=== PATIENT | female | born 1945 | race Caucasian/White ===

== ENCOUNTER 2018-11-10 08:11 | Inpatient (IN) | payer OTHER ==
[2018-11-10] VITALS (29 sets, daily range): BP systolic 96–122; BP diastolic 53–88; PULSE 75–120; RESP 15–25; Ht 149.9 cm; Wt 44.4 kg
[~2018-11-10] VITALS: Ht 149.9 cm; Wt 44.4 kg
[2018-11-10] MEDS ORDERED: ONDANSETRON 4 MG INJ IV STA (08:21)
[2018-11-10] MEDS ORDERED: IODIXANOL LOCM 100 ML BTL ONE ×2 (08:24→08:36)
[2018-11-10] MEDS ORDERED: SOD CHLORIDE 0.9% 100 ML ONE ×2 (08:24→08:36)
[2018-11-10] MEDS ORDERED: ASPIRIN 325 MG TAB PO ONE (08:30)
[2018-11-10] MEDS ORDERED: CEFTRIAXONE 1 GM/50 ML (PMX) 50 ML IVPB STA (08:53)
[2018-11-10] MEDS ORDERED: POLY238P32 ORAL (08:56)
[2018-11-10] MEDS ORDERED: INSU100I33 SC (08:56)
[2018-11-10] MEDS ORDERED: CARV3.1260 ORAL (08:56)
[2018-11-10] MEDS ORDERED: ASPI-831 ORAL (08:56)
[2018-11-10] MEDS ORDERED: LEVO125T7 ORAL (08:56)
[2018-11-10] MEDS ORDERED: ATOR-2 ORAL (08:56)
[2018-11-10] MEDS ORDERED: METF100010 ORAL (08:56)
[2018-11-10] MEDS ORDERED: CLOP75TA28 ORAL (08:56)
[2018-11-10] MEDS ORDERED: ASPIRIN 300 MG SUPP PR ONE (09:00)
[2018-11-10] MEDS ORDERED: ACETAMINOPHEN 650 MG SUPP PR ONE (09:30)
[2018-11-10] MEDS ORDERED: SODIUM CHLORIDE 0.9% 1L BAG IV* STA (09:50)
[2018-11-10] MEDS ORDERED: SENN-120 PO (10:01)
[2018-11-10] MEDS ORDERED: ACETAMINOPHEN 325 MG TAB PO PRN ×2 (11:00→12:30)
[2018-11-10] MEDS ORDERED: ONDANSETRON 4 MG INJ IV PRN ×2 (11:00→12:30)
[2018-11-10] MEDS ORDERED: NORepinephrine 8MG/250 ML (PMX 250 ML IV STA ×2 (12:24→12:46)
[2018-11-10] MEDS ORDERED: DOCUSATE SODIUM 100 MG CAP PO PRN (12:30)
[2018-11-10] MEDS ORDERED: MAGNESIUM HYDROXIDE 30ML CUP PO PRN (12:30)
[2018-11-10] MEDS ORDERED: hydrALAzine 20 MG INJ IV PRN (12:30)
[2018-11-10] MEDS ORDERED: NITROGLYCERIN (SL) 0.4 MG TAB SL PRN (12:30)
[2018-11-10] MEDS ORDERED: morphine 2 MG INJ IV PRN (12:30)
[2018-11-10] MEDS ORDERED: SENNA TAB PO PRN (12:30)
[2018-11-10] MEDS ORDERED: HYDROCODONE/APAP (5/325) TAB PO PRN (12:30)
[2018-11-10] MEDS ORDERED: ALBUTEROL/IPRATROPIUM (NEB) 3 ML AMP HHN PRN (12:30)
[2018-11-10] MEDS ORDERED: LORAZEPAM 2 MG INJ IV PRN (12:30)
[2018-11-10] MEDS ORDERED: NACL 0.9% 3 ML SYG IV SCH (12:30)
--- NOTE | 2018-11-10 13:18 | ERD ---
ER Documentation Chief Complaint Chief Complaint ALOC WITH LKWT 2300 LAST NIGHT. FEBRILE AND TACHYCARDIC HPI Patient is a 73-year-old female with stroke, hypertension, and diabetes who presents with altered mental status. Please note the history and physical exam is limited secondary to the patient's altered mental status. The patient was brought in by ambulance. She was altered and is normally awake alert and oriented. The patient had a last known well time of 11 PM. She was "lethargic" per paramedics. Her sugar was 353. ROS All systems reviewed and are negative except as per history of present illness. Medications Home Meds Reported Medications Sennosides* (Senna Lax*) 8.6 Mg Tablet, 1 TAB PO Q12H PRN for CONSTIPATION, TAB 11/10/18 Polyethylene Glycol 3350 ([id number]) 238 Gm Powder, 17 GM ORAL DAILY 11/10/18 Insulin Glargine,Hum.rec.anlog (Basaglar Kwikpen U-100) 100 Unit/1 Ml Insuln.pen, 20 UNITS SC HS 11/10/18 Levothyroxine Sodium* (Levothyroxine Sodium*) 125 Mcg Tablet, 1 TAB ORAL DAILY 11/10/18 Atorvastatin* (Atorvastatin*) 80 Mg Tablet, 1 TAB ORAL HS 11/10/18 Clopidogrel Bisulfate (Clopidogrel) 75 Mg Tablet, 1 TAB ORAL DAILY 11/10/18 Aspirin (Aspirin) 81 Mg Chew, 1 TAB ORAL DAILY 11/10/18 Metformin Hcl* (Metformin Hcl*) 1,000 Mg Tablet, 500 MG ORAL BID 11/10/18 Carvedilol* (Carvedilol*) 3.125 Mg Tablet, 1 TAB ORAL DAILY 11/10/18 Allergies Allergies: Coded Allergies: No Known Allergy (Unverified , 11/10/18) PMhx/Soc History of Surgery: Yes (JOVON, RT HIP, CHOLECYSTECTOMY) Anesthesia Reaction: No Hx Neurological Disorder: Yes (CVA) Hx Respiratory Disorders: No Hx Cardiac Disorders: Yes (HTN) Hx Psychiatric Problems: No Hx Miscellaneous Medical Probl: Yes (DM, HYPOTHYROIDISM) Hx Alcohol Use: No Hx Substance Use: No Hx Tobacco Use: No Smoking Status: Never smoker FmHx Unable to obtain Physical Exam Vitals Vital Signs Date Temp Pulse Resp B/P (MAP) Pulse Ox O2 O2 Flow FiO2 Time Delivery Rate 11/10/18 100.4 100 19 82/45 (57) 100 Nasal 11:50 Cannula 11/10/18 103.1 10:34 11/10/18 101.0 109 20 94/53 (67) 99 Nasal 2.0 10:30 Cannula 11/10/18 102.8 108 18 114/65 97 Nasal 09:30 (81) Cannula 11/10/18 103.1 127 16 127/70 90 08:54 (89) 11/10/18 Nasal 2 08:30 Cannula Physical Exam Const: Altered, nonverbal at this time Head: Atraumatic Eyes: Normal Conjunctiva ENT: Normal External Ears, Nose and Mouth. Neck: Full range of motion. No meningismus. Resp: Clear to auscultation bilaterally Cardio: Regular rate and rhythm, no murmurs Abd: Soft, non tender, non distended. Normal bowel sounds Skin: No petechiae or rashes Back: No midline or flank tenderness Ext: No cyanosis, or edema Neur: Awake but nonverbal, right-sided gaze preference, not following commands to squeeze fingers Result Diagram: 11/10/18 0848 11/10/18 0848 Results 24 hrs Laboratory Tests Test 11/10/18 08:46 11/10/18 08:48 11/10/18 09:04 11/10/18 11:11 Prothrombin Time 13.5 Sec Prothrombin Time 1.1 Ratio INR International 1.02 Normalized Ratio Activated 30.5 Sec Partial Thrombopl ast Time Hemoglobin A1c 8.7 % White Blood Count 3.7 10^3/ul Red Blood Count 4.25 10^6/ul Hemoglobin 12.0 g/dl Hematocrit 35.7 % Mean Corpuscular 84.0 fl Volume Mean Corpuscular 28.2 pg Hemoglobin Mean Corpuscular 33.6 g/dl Hemoglobin Concen t Red Cell 15.7 % Distribution Width Platelet Count 214 10^3/UL Mean Platelet 9.9 fl Volume Immature 1.100 % Granulocytes % Neutrophils % 93.5 % Lymphocytes % 3.8 % Monocytes % 1.3 % Eosinophils % 0.0 % Basophils % 0.3 % Nucleated Red 0.0 /100WBC Blood Cells % Immature 0.040 10^3/ul Granulocytes # Neutrophils # 3.5 10^3/ul Lymphocytes # 0.1 10^3/ul Monocytes # 0.1 10^3/ul Eosinophils # 0.0 10^3/ul Basophils # 0.0 10^3/ul Nucleated Red 0.0 10^3/ul Blood Cells # Sodium Level 132 mmol/L Potassium Level 3.3 mmol/L Chloride Level 90 mmol/L Carbon Dioxide 27 mmol/L Level Anion Gap 15 Blood Urea 10 mg/dl Nitrogen Creatinine 0.77 mg/dl Est Glomerular mL/min Filtrat Rate mL/min Glucose Level 399 mg/dl Calcium Level 9.0 mg/dl Creatine Kinase < 20 IU/L Creatine Kinase Index Creatinine Kinase < 0.22 ng/ml MB (Mass) Troponin I 0.059 ng/ml Triglycerides 141 mg/dl Level Cholesterol Level 154 mg/dl LDL Cholesterol, 73 mg/dl Calculated HDL Cholesterol 53 mg/dl Cholesterol/HDL 2.9 RATIO Ratio Ethyl Alcohol < 10.0 mg/dl Level POC Venous 2.7 mmol/L Lactate Urine Color YELLOW Urine Clarity SLIGHTLY CLOUDY Urine pH 6.0 Urine Specific 1.052 Coffey Urine Ketones 1+ mg/dL Urine Nitrite NEGATIVE mg/dL Urine Bilirubin NEGATIVE mg/dL Urine NEGATIVE mg/dL Urobilinogen Urine Leukocyte 2+ Nikolas/ul Esterase Urine Microscopic > 182 /HPF RBC Urine Microscopic 57 /HPF WBC Urine Bacteria FEW /HPF Urine Hemoglobin 3+ mg/dL Urine Glucose 3+ mg/dL Urine Total 1+ mg/dl Protein Urine Opiates Negative Screen Urine Negative Barbiturates Urine Negative Amphetamines Screen Urine Negative Benzodiazepines Screen Urine Cocaine Negative Screen Urine Negative Cannabinoids Test 11/10/18 11:20 POC Venous 1.7 mmol/L Lactate Current Medications Medications Dose Sig/Lanie Start Time Status Last (Trade) Ordered Route PRN Stop Time Admin Dose Reason Admin Ondansetron 4 mg ONCE STAT 11/10/18 DC 11/10/18 HCl (Zofran IV 08:21 08:21 Inj) 11/10/18 08:22 IV Flush 10 ml STK-MED 11/10/18 DC 11/10/18 (NS 10 ml) ONCE .ROUTE 08:24 08:53 11/10/18 08:25 Sodium 100 ml @ ud STK-MED 11/10/18 DC 11/10/18 Chloride ONCE .ROUTE 08:24 08:53 11/10/18 08:25 Iodixanol 100 ml STK-MED 11/10/18 DC 11/10/18 (Visipaque ONCE .ROUTE 08:24 08:53 Locm) 11/10/18 08:25 Aspirin 325 mg ONCE ONCE 11/10/18 DC (Aspirin) PO 08:30 11/10/18 08:53 IV Flush 10 ml STK-MED 11/10/18 DC 11/10/18 (NS 10 ml) ONCE .ROUTE 08:36 08:53 11/10/18 08:37 Sodium 100 ml @ ud STK-MED 11/10/18 DC 11/10/18 Chloride ONCE .ROUTE 08:36 08:53 11/10/18 08:37 Iodixanol 100 ml STK-MED 11/10/18 DC 11/10/18 (Visipaque ONCE .ROUTE 08:36 08:53 Locm) 11/10/18 08:37 Aspirin 300 mg ONCE ONCE 11/10/18 DC 11/10/18 (Aspirin) MN 09:00 10:34 11/10/18 09:01 Ceftriaxone 50 ml @ ONCE STAT 11/10/18 DC 11/10/18 Sodium 100 mls/hr IVPB 08:53 09:00 11/10/18 09:22 650 mg ONCE ONCE 11/10/18 DC 11/10/18 Acetaminophen MN 09:30 10:34 (Tylenol 11/10/18 09:31 Supp) Sodium 1,360 ml BOLUS OVER 2 11/10/18 DC 11/10/18 Chloride HOURS STAT 09:50 09:50 (NS) IV* 11/10/18 09:51 Ondansetron 4 mg ER BRIDGE 11/10/18 HCl (Zofran PRN IV 11:00 Inj) NAUSEA/VOMITI 11/11/18 10:59 NG 650 mg ER BRIDGE 11/10/18 Acetaminophen PRN PO 11:00 (Tylenol .MILD PAIN 11/11/18 10:59 Tab) 1-3 OR TEMP 250 ml @ ONCE STAT 11/10/18 DC Norepinephrin 7.5 mls/hr IV 12:24 e 11/10/18 12:46 IV Flush 3 ml PER 11/10/18 (NS 3 ml) PROTOCOL IV 12:30 Ondansetron 4 mg Q6H PRN 11/10/18 HCl (Zofran IV 12:30 Inj) NAUSEA/VOMITI NG 650 mg Q6H PRN 11/10/18 Acetaminophen PO .PAIN 1-3 12:30 (Tylenol OR TEMP Tab) 1 tab Q6H PRN 11/10/18 Acetaminophen PO .MOD PAIN 12:30 / 4-6 Hydrocodone Bitart ([place] (5/325)) Morphine 2 mg Q4H PRN 11/10/18 Sulfate IV .SEVERE 12:30 (morphine) PAIN 7-10 Docusate 100 mg Q12H PRN 11/10/18 Sodium PO 12:30 (Colace) .CONSTIPATION Magnesium 30 ml DAILY PRN 11/10/18 Hydroxide PO 12:30 (Milk Of Mag) .CONSTIPATION Heparin 5,000 unit Q12 SC 11/10/18 Sodium 21:00 (Porcine) (Heparin (5000 Units/1ml)) Sodium 1,000 ml @ [id number] IV 11/10/18 Chloride 75 mls/hr 12:22 Lorazepam 0.5 mg Q6H PRN 11/10/18 (Ativan) IV ANXIETY 12:30 Albuterol/ 3 ml Q4H RESP 11/10/18 Ipratropium THERAPY PRN 12:30 (Duoneb) HHN SHORTNESS OF BREATH Hydralazine 10 mg Q6H PRN 11/10/18 HCl IV ELEVATED 12:30 (Apresoline) BLOOD PRESSURE Ceftriaxone 50 ml @ Q24H IVPB 11/11/18 Sodium 100 mls/hr 09:00 1 tab Q5M PRN 11/10/18 Nitroglycerin SL ANGINA 12:30 (Nitroglyceri n (Sl Tab) 0.4 Mg) Aspirin 81 mg DAILY PO 11/11/18 (Aspirin) 09:00 80 mg HS PO 11/10/18 Atorvastatin 21:00 Calcium (Lipitor) Clopidogrel 75 mg DAILY PO 11/11/18 Bisulfate 09:00 (plaVIX) Insulin 20 unit HS SC 11/10/18 UNV Glargine 21:00 (Lantus) 17 gm DAILY PO 11/11/18 Polyethylene 09:00 Glycol (Miralax) Senna 1 tab Q12H PRN 11/10/18 (Senokot) PO 12:30 CONSTIPATION 250 ml @ ONCE STAT 11/10/18 11/10/18 Norepinephrin 7.5 mls/hr IV 12:46 13:09 e 11/11/18 22:05 Procedures/MDM CT head read by radiology. CTA read by radiology. Chest x-ray read by radiology. Sepsis Documentation: Patient's infectious symptoms have not stabilized and the patient is at risk of rapid decompensation. The patient will be admitted for careful hydration, antibiotic therapy, and infectious source control. SEVERE SEPSIS CRITERIA: Infectious source: Cystitis End organ damage indicated by: Hypotension SEPSIS MANAGEMENT Time of recognition of sepsis: 8:54 AM Time of recognition of severe sepsis: 9:04 AM. Time of recognition of septic shock: 12:24 PM. 3 HOUR BUNDLE Blood cultures x 2 before broad-spectrum antibiotics: Yes 30 ml/kg NS bolus completed Initial lactate 2.7 Repeat lactate 1.7 SEPTIC SHOCK ASSESSMENT: No lactic acid > 4.0 Yes persistent hypotension (SBP < 90 or 40 mmHg drop, MAP < 65) despite 30 mL/kg IV fluid bolus VOLUME REASSESSMENT FOR SEPTIC SHOCK: Reevaluation Time: 11:50 AM Temp 100.4, BP 82/45, HR 100, RR 19, Pox 100% Heart regular rate & rhythm Lungs no crackles Skin warm & dry Cap Refill less than 2 seconds Peripheral pulses radially present PERSISTENT HYPOTENSION TREATMENT: Comfort care no Central line right femoral line Vasopressor started levophed I considered further perfusion assessment with CVP measurement, SCVO2, bedside ultrasound volume assessment, passive leg raise, trial of further fluid bolus. And proceeded with 30 ml/kg fluid bolus of NSS, broad spectrum antibiotics, and admission. Patient will be admitted to the ICU to the care of the panel team. Initially a code stroke was called upon arrival for altered mental status and weakness. The patient arrived at 8:11 AM. At 8:13 AM a code stroke was called and the patient went directly to CT. 8:27 AM I spoke with Dr. Sterling. The patient was outside the window for TPA and is not a TPA candidate as the last known well time is 11 PM. CTA did show basilar stenosis but no large vessel occlusion so the patient will be admitted to [facility] and does not require transfer. The patient was given aspirin. She was given aspirin per rectum as she does not currently have the ability to take oral meds. CRITICAL CARE Critical care time 50 minutes Emergent fluid management while maintaining close respiratory support. Provision of immediate and broad-spectrum antibiotic therapy. Simultaneous assessment for possible sources in order to direct targeted therapy. Consideration for invasive and chemical support to prevent cardiopulmonary c ollapse. Critical care time is independent of procedures performed. Central Line Placement by me: Patient consented, sterilely draped, full prep, gown, glove, mask, time out performed. Anesthesia: 1% lidocaine locally Location: Right femoral Device: Multiple lumen Technique: Seldinger technique. Secured with suture. Results: Venous return from all ports with easy saline flush. No complications. Guide wire retrieved and disposed of. ED Ultrasound: Central line placed by me using concurrent ultrasound guidance. Real time image archived in the medical record confirms vascular anatomy. Departure Diagnosis: Primary Impression: Septic shock Additional Impressions: Altered level of consciousness Basilar artery stenosis Severe sepsis Cystitis Condition: Serious CRUZ GONZALES MD Nov 10, 2018 13:18
[2018-11-10] MEDS: SOD CHLORIDE 0.45% 1,000 ML IV SCH (15:34)
[2018-11-10] MEDS ORDERED: GLUCOSE GEL 15 GRAM TUBE PO PRN ×2 (16:30)
[2018-11-10] MEDS ORDERED: DEXTROSE 50% 50 ML SYRINGE IV PRN ×2 (16:30)
[2018-11-10] MEDS ORDERED: GLUCAGON 1 MG INJ IM PRN (16:30)
[2018-11-10] MEDS ORDERED: GLUCOSE GEL 15 GRAM TUBE BUCCAL PRN (16:30)
[2018-11-10] MEDS ORDERED: POTASSIUM CHLORIDE (SR) 20 MEQ TAB PO STA (17:15)
[2018-11-10] MEDS: INSULIN ASPART [NOVOLOG] 3 ML PEN SC SCH ×3 (17:35→21:17)
--- NOTE | 2018-11-10 17:42 | RADRPT ---
Echocardiogram Report Patient Name: ELEAZAR RODRIGUEZESPatient ID: [id number] : [id number] (73y 3m)Study Date: 11/10/2018 3:43:25 PM Gender: FAccession #: [id number] Tech: Mario Kimbrough [facility] Location: [address] Ref.Physician: JOSÉ MIGUEL FARAH Height(Cm): BSA: Weight(Kg): Quality: AdequateAccount #: Procedures: Echocardiographic Report: Transthoracic echocardiogram with complete 2D, M-Mode, and doppler examination. Indications: R/O Cerebrovascular Accident. Measurements: 2D/M Mode Doppler Measurement Value Normal Range Measurement Value Normal Range LVIDd 2D 4.7 [ 3.8 - 5.2 ] cm AV Peak Misbah 1.1 [ 100.0 - 170.0 ] cm/sec LVIDs 2D 3.8 [ 2.2 - 3.5 ] cm AV Peak PG 5.0 [ 2.0 - 9.0 ] mmHg LVPWd 2D 1.0 [ 0.6 - 0.9 ] cm LVOT Peak Misbah 0.8 [ 70.0 - 110.0 ] cm/sec IVSd 2D 1.1 [ 0.6 - 0.9 ] cm LVOT Peak PG 3.0 [ 2.0 - 6.0 ] mmHg AoR Diam 2D 1.9 [ 2.3 - 3.1 ] cm MV E Peak Misbah 0.6 [ 60.0 - 130.0 ] cm/sec EDV 2D 104.0 [ 46.0 - 106.0 ] ml MV A Peak Misbah 0.8 [ 100.0 - 120.0 ] cm/sec ESV 2D 63.9 [ 14.0 - 42.0 ] ml MV E/A 0.8 [ 0.8 - 1.5 ] ratio EF 2D 38.6 [ 54.0 - 74.0 ] percent MV Decel Time 162 [ 104 - 258 ] msec LA Dimen 2D 3.4 [ 2.7 - 3.8 ] cm Lat E` Misbah 0.1 [ 10.0 - 15.0 ] cm/sec Lateral E/E` 10.3 [ 1.0 - 2.0 ] ratio Med E` Misbah 0.1 cm/sec MV E/A 0.8 [ 0.8 - 1.5 ] ratio TR Peak Misbah 2.9 [ 100.0 - 280.0 ] cm/sec TR Peak PG 33.0 mmHg RVSP 43.0 [ 10.0 - 36.0 ] mmHg Findings: Left Ventricle: Normal left ventricular cavity size. Left ventricular wall thickness upper limits of normal. Mild global left ventricular systolic dysfunction. Ejection fraction is visually estimated at 35 %. Tissue Doppler/Mitral Doppler indices are consistent with impaired relaxation (Stage I diastolic dysfunction). These segments of the LV are hypokinetic mid anterior segment, apical anterior segment, apical lateral segment, inferior apex segment, anteroseptum mid segment, apex and apical septum. Right Ventricle: Normal right ventricular size. Normal right ventricular systolic function. Left Atrium: The left atrium is normal in size. Right Atrium: The right atrium is normal in size. Mitral Valve: Mild mitral leaflet calcification. Mild mitral annular calcification. Mild mitral valve regurgitation. Aortic Valve: No significant aortic stenosis or insufficiency. Aortic cusps appear mildly calcified. Tricuspid Valve: Normal appearance of the tricuspid valve. Estimated peak PA systolic pressure 43 mmHg. There is mild tricuspid regurgitation. Pulmonic Valve: Pulmonic valve not well visualized. Pericardium: Normal pericardium with no significant pericardial effusion. Aorta: Normal aortic root. IVC: Normal size with poor respiratory collapse consistent with elevated right atrial pressure. Conclusions: Normal left ventricular cavity size. Left ventricular wall thickness upper limits of normal. Mild global left ventricular systolic dysfunction. Ejection fraction is visually estimated at 35 %. Tissue Doppler/Mitral Doppler indices are consistent with impaired relaxation (Stage I diastolic dysfunction). These segments of the LV are hypokinetic mid anterior segment, apical anterior segment, apical lateral segment, inferior apex segment, anteroseptum mid segment, apex and apical septum. The left atrium is normal in size. Mild mitral leaflet calcification. Mild mitral annular calcification. Mild mitral valve regurgitation. No significant aortic stenosis or insufficiency. Aortic cusps appear mildly calcified. Normal appearance of the tricuspid valve. Estimated peak PA systolic pressure 43 mmHg. There is mild tricuspid regurgitation. Normal size with poor respiratory collapse consistent with elevated right atrial pressure. Electronically Signed By: Soren Klein 2018-11-10 17:41:37 PDT
--- NOTE | 2018-11-10 17:54 | HP ---
DATE OF ADMISSION: 11/10/2018 CHIEF COMPLAINT: Altered mental status. HISTORY OF PRESENT ILLNESS: A 73-year-old female with past medical history of prior stroke, hyperten morena, diabetes, and hypothyroidism who comes in with altered mental status. Most of the information is obtained from the ER documentation, the patient gives a limited HPI at this time. Per records, ap parently, the patient was having altered mental status that occurred around 11:00 p.m. last night ronny t the family noticed. Apparently, she went to bed, it is unclear, but in any event early this mornin g, there was no concern that EMS was called. The patient was brought into the ER around 8:00 a.m. S he was found to be altered in the ER, but otherwise answering simple questions. She was found to hav e elevated blood sugar at 353. Initially, per recommendation, code stroke was considered and was goi ng to be initiated. For unclear reasons, this was not followed through, but not In the meantime, the patient was also found with low systolic blood pressure in the 80s today and then she was found with temperature of 103.1 and placed on pressor support with signs of septic shock secondary to likely UT I. She did have a head CT today that showed no intracranial hemorrhages or acute abnormalities appre ciated, although there are chronic bilateral cerebellar infarcts noted. Lactic acid was also found t o be elevated at 2.7. PAST MEDICAL HISTORY: As stated above. ALLERGIES: NO KNOWN DRUG ALLERGIES. HOME MEDICATIONS: 1. Plavix 75 mg daily. 2. Atorvastatin 80 mg at bedtime. 3. Coreg 3.125 mg daily. 4. Aspirin 81 mg daily. 5. Polyethylene glycol 17 grams daily. 6. Senna 1 tab q.12 hours p.r.n. 7. Glargine insulin 20 units at bedtime. 8. Levothyroxine 125 mcg daily. 9. Metformin 500 mg b.i.d. PAST SURGICAL HISTORY: She has had right hip surgery in the past, JOVON and also cholecystectomy. SOCIAL HISTORY: Negative for smoking, drinking, or IV drug abuse. FAMILY HISTORY: Unknown. PHYSICAL EXAMINATION: VITAL SIGNS: Today, T-max 103.1, pulse 127 to 100, respirations 16 to 20, blood pressure is 82 to 12 7 systolic over 45 to 70 diastolic, satting at 100% on nasal cannula 2 liters. GENERAL: The patient lying in bed, answers simple questions, slightly lethargic but again more awake than before. No acute distress. HEENT: Pupils equal, round, and react to light. Extraocular muscles intact. NECK: Supple, no thyromegaly. LUNGS: Clear to auscultation bilaterally. CARDIOVASCULAR: S1, S2 heard. No murmur, rubs or gallops. ABDOMEN: Soft, nontender, nondistended. Normal bowel sounds. No rebound or guarding. MUSCULOSKELETAL: No lower extremity edema bilaterally. NEUROLOGIC: Slight right gaze preference, no apparent focal deficits. Gait was not assessed. LABORATORIES: CBC is normal. The sodium 132, potassium 3.3, chloride 90, CO2 of 27, BUN 10, creatin ine 0.77, glucose 399. Lactic acid 2.7. LFTs are normal. UA shows 2+ leukocyte esterase positive, few bacteria, elevated white blood cells in the urine. Coags are normal. We mentioned head CT findi ngs. Chest x-ray showed mild cardiogenic pulmonary venous hypertension. There was a head CTA perfor med, head and neck, no acute large vessel occlusion or aneurysms. There is some diffuse atherosclero tic calcifications of the basilar artery resulting in moderate to severe stenosis proximal to the bas ilar tip, diffuse atherosclerotic calcification of the bilateral V3 and V4 vertebral arteries resulti ng in a moderate to severe left and moderate right side flow limiting stenosis, diffuse atherosclerot ic soft plaque of the bilateral P1 through P4 posterior cerebral arteries, resulting in multifocal mo derate to severe stenosis. Carotid Doppler study shows no evidence of any hemodynamically significan t stenosis bilaterally. ASSESSMENT AND PLAN: A 73-year-old female with prior history of hypertension, prior stroke, hypothyr oidism, diabetes who comes in with altered mental status and signs of septic shock secondary to UTI. 1. Altered mental status. The patient's symptoms could be secondary to septic shock secondary to UT I, also cannot rule out cerebrovascular event, although head CT was negative. The patient in intensi ve care unit. Try to wean down pressors, appropriate broad spectrum antibiotics. Follow up final cu lture results of the urine. Low dose IV fluids, trend the lactic acid. Tylenol p.r.n. pain and feve rs. 2. Altered mental status. Again, see number 1. Also, we will allow for permissive hypertension at this time. Follow up MRI of the brain and echocardiogram results. Get PT, OT and speech therapy con sults as well. Continue high-dose Lipitor and aspirin. For now, continue home aspirin and Plavix ca utiously. 3. Essential hypertension. Again, see above. Allow for permissive hypertension at this time. 4. History of diabetes. Follow up A1c. Continue Lantus insulin and sliding scale insulin will be a dded. 5. Hypothyroidism. Follow up thyroid studies. Continue levothyroxine. 6. DVT prophylaxis. Heparin subQ. 7. GI prophylaxis. Consider H2 leo. Dictated By: JOSÉ MIGUEL JENNINGS/TOÑO Conf#: [id number] DID#: [id number]
[2018-11-10] MEDS ORDERED: INSULIN GLARGINE [LANtus] 3 ML PEN SC SCH (21:00)
[2018-11-10] MEDS: HEPARIN 5,000 UNIT/1 ML VIAL SC SCH (21:14)
[2018-11-10] MEDS: INSULIN GLARGINE [LANTus] (100 UNITS/ML) SYG SC SCH (21:15)
[2018-11-10] MEDS: ATORVASTATIN 80 MG TAB PO SCH (21:17)
[2018-11-11] VITALS (24 sets, daily range): BP systolic 90–113; BP diastolic 57–73; PULSE 77–112; RESP 12–22
[2018-11-11] MEDS: ACCU-CHEK XX SCH ×2 (01:16→23:44)
[2018-11-11] MEDS: SOD CHLORIDE 0.45% 1,000 ML IV SCH ×2 (01:16→16:05)
[2018-11-11] MEDS: POTASSIUM CHLORIDE 100 ML IVPB SCH ×3 (06:39→11:15)
[2018-11-11] MEDS ORDERED: VANCOMYCIN IV PER PHARMACY XX SCH (07:00)
[2018-11-11] MEDS ORDERED: MAGNESIUM SULFATE 4 GM/100 ML 100 ML IVPB ONE (07:30)
[2018-11-11] MEDS ORDERED: VANCOMYCIN 1 GM 250 ML IVPB SCH ×2 (08:00→09:00)
[2018-11-11] MEDS: CLOPIDOGREL 75 MG TAB PO SCH (08:57)
[2018-11-11] MEDS: ASPIRIN 81 MG TAB PO SCH (08:58)
[2018-11-11] MEDS: POLYETHYLENE GLYCOL 17 GM PACKET PO SCH (08:58)
[2018-11-11] MEDS: CEFTRIAXONE 1 GM/50 ML (PMX) 50 ML IVPB SCH (08:58)
[2018-11-11] MEDS: HEPARIN 5,000 UNIT/1 ML VIAL SC SCH ×2 (09:02→21:03)
[2018-11-11] MEDS: INSULIN ASPART [NOVOLOG] 3 ML PEN SC SCH ×7 (09:02→21:00)
--- NOTE | 2018-11-11 09:59 | PN ---
Date/Time of Note Date/Time of Note DATE: 11/11/18 TIME: 09:57 Assessment/Plan VTE Prophylaxis Risk score (from Ns)>0 risk: 4 SCD applied (from [facility] [place]): No SCD contraindicated: other Pharmacological prophylaxis: heparin Lines/Catheters IV Catheter Type (from [facility]): Central Line Central line still needed: Yes Urinary Cath still in place: Yes Reason Cath still needed: urinary retention Assessment/Plan Hospital Course S: Patient off pressor support since yesterday evening. No acute events overnight, still waiting for brain MRI to be performed. O: VS - see below PHYSICAL EXAMINATION: GENERAL: The patient lying in bed, family member at bedside, no acute distress HEENT: Pupils equal, round, and react to light. Extraocular muscles intact. NECK: Supple, no thyromegaly. LUNGS: Clear to auscultation bilaterally. CARDIOVASCULAR: S1, S2 heard. No murmur, rubs or gallops. ABDOMEN: Soft, nontender, nondistended. Normal bowel sounds. No rebound or guarding. MUSCULOSKELETAL: No lower extremity edema bilaterally. NEUROLOGIC: Slight right gaze preference, no apparent focal deficits. Gait was not assessed. ASSESSMENT AND PLAN: 73-year-old female with prior history of hypertension, prior stroke, hypothyroidism, diabetes who comes in with altered mental status and signs of septic shock secondary to UTI. 1. Altered mental status- secondary to septic shock secondary from UTI, also cannot rule out cerebrovascular event, although head CT was negative. -Continue broad spectrum antibiotics. Follow up final culture results of the urine. -Continue low dose IV fluids, trend the lactic acid. Tylenol p.r.n. pain and fevers. -Follow-up echocardiogram, carotid Doppler study, and MRI brain results - Continue high-dose Lipitor and aspirin. For now, continue home aspirin and Plavix cautiously. 2. History of prior stroke: - Again, see number 1. - Also, we will allow for permissive hypertension at this time. - Follow up MRI of the brain and echocardiogram results. - f/u PT, OT and speech therapy consults as well. Continue high-dose Lipitor and aspirin. For now, continue home aspirin and Plavix cautiously. 3. Essential hypertension. Again, see above. Allow for permissive hyp ertension at this time until MRI brain results are back. 4. History of diabetes- A1c = 8.8. Sugars improved since yesterday - Continue Lantus insulin and sliding scale insulin, aspart with meals 5. Hypothyroidism. Follow up thyroid studies. Continue levothyroxine. 6. DVT prophylaxis. Heparin subQ. 7. GI prophylaxis - H2 leo. Critical care time spent in patient care today equals 50 minutes Result Diagram: 11/11/180 11/11/180 Results 24hrs Laboratory Tests Test 11/10/18 11:11 11/10/18 11:20 11/10/18 13:44 11/10/18 15:31 Urine Color YELLOW Urine Clarity SLIGHTLY CLOUDY A Urine pH 6.0 Urine Specific 1.052 H Equality Urine Ketones 1+ H Urine Nitrite NEGATIVE Urine Bilirubin NEGATIVE Urine NEGATIVE Urobilinogen Urine Leukocyte 2+ H Esterase Urine Microscopic > 182 H RBC Urine Microscopic 57 H WBC Urine Bacteria FEW A Urine Hemoglobin 3+ H Urine Glucose 3+ H Urine Total 1+ H Protein Urine Opiates Negative Screen Urine Negative Barbiturates Urine Negative Amphetamines Screen Urine Negative Benzodiazepines Screen Urine Cocaine Negative Screen Urine Negative Cannabinoids POC Venous 1.7 Lactate Lactic Acid Level 1.4 Bedside Glucose 423 *H Test 11/10/18 17:18 11/10/18 17:56 11/10/18 18:14 11/10/18 21:08 Bedside Glucose 445 *H 431 *H 197 Glucose Level 408 *H Test 11/11/18 01:02 11/11/18 04:00 11/11/18 08:15 11/11/18 08:56 Bedside Glucose 192 177 165 White Blood Count 10.7 # Red Blood Count 3.80 L Hemoglobin 10.7 L Hematocrit 32.2 L Mean Corpuscular 84.7 Volume Mean Corpuscular 28.2 L Hemoglobin Mean Corpuscular 33.2 Hemoglobin Concen t Red Cell 16.0 H Distribution Width Platelet Count 201 Mean Platelet 10.3 Volume Immature 2.200 H Granulocytes % Neutrophils % Segmented 56 Neutrophils % (Manual) Band Neutrophils 36 H % (Manual) Lymphocytes % Lymphocytes % 4 L (Manual) Reactive 2 H Lymphocytes % (Manual) Monocytes % Eosinophils % Eosinophils % 1 (Manual) Basophils % Basophils % 1 (Manual) Nucleated Red 0.0 Blood Cells % Immature 0.240 H Granulocytes # Neutrophils # Neutrophils # 6.4 (Manual) Band Neutrophils 3.8 H # Lymphocytes 0.4 L (Manual) Lymphocytes # Reactive 0.2 H Lymphocytes # Monocytes # Eosinophils # Basophils # Basophils # 0.1 H (Manual) Nucleated Red Blood Cells # Platelet Estimate NORMAL Polychromasia 2+ Poikilocytosis 1+ Anisocytosis 1+ Sodium Level 134 L Potassium Level 2.8 *L Chloride Level 99 Carbon Dioxide 23 Level Anion Gap 12 Blood Urea 15 Nitrogen Creatinine 0.77 Est Glomerular Filtrat Rate mL/min Glucose Level 176 # Hemoglobin A1c 8.8 H Calcium Level 8.2 L Phosphorus Level 2.9 Magnesium Level 1.2 L Triglycerides 136 Level Cholesterol Level 122 LDL Cholesterol, 53 Calculated HDL Cholesterol 42 # Cholesterol/HDL 2.9 Ratio Thyroid 0.255 L Stimulating Hormone (TSH) Exam/Review of Systems Exam Vitals Vital Signs Date Temp Pulse Resp B/P (MAP) Pulse Ox O2 O2 Flow FiO2 Time Delivery Rate 11/11/18 86 17 93/63 (73) 91 Nasal 4.0 09:00 Cannula 11/11/18 97.6 08:00 Intake and Output 11/10/18 11/10/18 11/11/18 1515:00 23:00 07:00 IntakeIntake Total 1417.5 ml 557.0 ml 92.5 ml OutputOutput Total 150 ml 525 ml 260 ml BalanceBalance 1267.5 ml 32.0 ml -167.5 ml Results Results 24hrs Laboratory Tests Test 11/10/18 11:11 11/10/18 11:20 11/10/18 13:44 11/10/18 15:31 Urine Color YELLOW Urine Clarity SLIGHTLY CLOUDY A Urine pH 6.0 Urine Specific 1.052 H Equality Urine Ketones 1+ H Urine Nitrite NEGATIVE Urine Bilirubin NEGATIVE Urine NEGATIVE Urobilinogen Urine Leukocyte 2+ H Esterase Urine Microscopic > 182 H RBC Urine Microscopic 57 H WBC Urine Bacteria FEW A Urine Hemoglobin 3+ H Urine Glucose 3+ H Urine Total 1+ H Protein Urine Opiates Negative Screen Urine Negative Barbiturates Urine Negative Amphetamines Screen Urine Negative Benzodiazepines Screen Urine Cocaine Negative Screen Urine Negative Cannabinoids POC Venous 1.7 Lactate Lactic Acid Level 1.4 Bedside Glucose 423 *H Test 11/10/18 17:18 11/10/18 17:56 11/10/18 18:14 11/10/18 21:08 Bedside Glucose 445 *H 431 *H 197 Glucose Level 408 *H Test 11/11/18 01:02 11/11/18 04:00 11/11/18 08:15 11/11/18 08:56 Bedside Glucose 192 177 165 White Blood Count 10.7 # Red Blood Count 3.80 L Hemoglobin 10.7 L Hematocrit 32.2 L Mean Corpuscular 84.7 Volume Mean Corpuscular 28.2 L Hemoglobin Mean Corpuscular 33.2 Hemoglobin Concen t Red Cell 16.0 H Distribution Width Platelet Count 201 Mean Platelet 10.3 Volume Immature 2.200 H Granulocytes % Neutrophils % Segmented 56 Neutrophils % (Manual) Band Neutrophils 36 H % (Manual) Lymphocytes % Lymphocytes % 4 L (Manual) Reactive 2 H Lymphocytes % (Manual) Monocytes % Eosinophils % Eosinophils % 1 (Manual) Basophils % Basophils % 1 (Manual) Nucleated Red 0.0 Blood Cells % Immature 0.240 H Granulocytes # Neutrophils # Neutrophils # 6.4 (Manual) Band Neutrophils 3.8 H # Lymphocytes 0.4 L (Manual) Lymphocytes # Reactive 0.2 H Lymphocytes # Monocytes # Eosinophils # Basophils # Basophils # 0.1 H (Manual) Nucleated Red Blood Cells # Platelet Estimate NORMAL Polychromasia 2+ Poikilocytosis 1+ Anisocytosis 1+ Sodium Level 134 L Potassium Level 2.8 *L Chloride Level 99 Carbon Dioxide 23 Level Anion Gap 12 Blood Urea 15 Nitrogen Creatinine 0.77 Est Glomerular Filtrat Rate mL/min Glucose Level 176 # Hemoglobin A1c 8.8 H Calcium Level 8.2 L Phosphorus Level 2.9 Magnesium Level 1.2 L Triglycerides 136 Level Cholesterol Level 122 LDL Cholesterol, 53 Calculated HDL Cholesterol 42 # Cholesterol/HDL 2.9 Ratio Thyroid 0.255 L Stimulating Hormone (TSH) Medications Medication Current Medications IV Flush (NS 3 ml) 3 ml PER PROTOCOL IV ; Start 11/10/18 at 12:30 Ondansetron HCl (Zofran Inj) 4 mg Q6H PRN IV NAUSEA/VOMITING; Start 11/10/18 at 12:30 Acetaminophen (Tylenol Tab) 650 mg Q6H PRN PO .PAIN 1-3 OR TEMP Last administered on 11/10/18at 21:52; Admin Dose 650 MG; Start 11/10/18 at 12:30 Acetaminophen/ Hydrocodone Bitart ([place] (5/325)) 1 tab Q6H PRN PO .MOD PAIN 4- 6; Start 11/10/18 at 12:30 Morphine Sulfate (morphine) 2 mg Q4H PRN IV .SEVERE PAIN 7-10; Start 11/10/18 at 12:30 Docusate Sodium (Colace) 100 mg Q12H PRN PO .CONSTIPATION; Start 11/10/18 at 12:30 Magnesium Hydroxide (Milk Of Mag) 30 ml DAILY PRN PO .CONSTIPATION; Start 11/10/18 at 12:30 Heparin Sodium (Porcine) (Heparin (5000 Units/1ml)) 5,000 unit Q12 SC Last administered on 11/11/18 09:02; Admin Dose 5,000 UNIT; Start 11/10/18 at 21:00 Sodium Chloride 1,000 ml @ 75 mls/hr [id number] IV Last administered on 11/11/18 01:16; Admin Dose 75 MLS/HR; Start 11/10/18 at 12:22 Lorazepam (Ativan) 0.5 mg Q6H PRN IV ANXIETY Last administered on 11/10/18at 22:05; Admin Dose 0.5 MG; Start 11/10/18 at 12:30 Albuterol/ Ipratropium (Duoneb) 3 ml Q4H RESP THERAPY PRN HHN SHORTNESS OF BREATH; Start 11/10/18 at 12:30 Hydralazine HCl (Apresoline) 10 mg Q6H PRN IV ELEVATED BLOOD PRESSURE; Start 11/10/18 at 12:30 Ceftriaxone Sodium 50 ml @ 100 mls/hr Q24H IVPB Last administered on 11/11/18 08:58; Admin Dose 100 MLS/HR; Start 11/11/18 at 09:00 Nitroglycerin (Nitroglycerin (Sl Tab) 0.4 Mg) 1 tab Q5M PRN SL ANGINA; Start 11/10/18 at 12:30 Aspirin (Aspirin) 81 mg DAILY PO Last administered on 11/11/18 08:58; Admin Dose 81 MG; Start 11/11/18 at 09:00 Atorvastatin Calcium (Lipitor) 80 mg HS PO Last administered on 11/10/18at 21:17; Admin Dose 80 MG; Start 11/10/18 at 21:00 Clopidogrel Bisulfate (plaVIX) 75 mg DAILY PO Last administered on 11/11/18at 08:57; Admin Dose 75 MG; Start 11/11/18 at 09:00 Polyethylene Glycol (Miralax) 17 gm DAILY PO Last administered on 11/11/18at 08:58; Admin Dose 17 GM; Start 11/11/18 at 09:00 Senna (Senokot) 1 tab Q12H PRN PO CONSTIPATION; Start 11/10/18 at 12:30 Norepinephrine 250 ml @ 7.5 mls/hr ONCE STAT IV Last administered on 11/10/18at 13:09; Admin Dose 7.5 MLS/HR; Start 11/10/18 at 12:46; Stop 11/11/18 at 22:05 Diagnostic Test (Pha) (Accu-Chek) 1 ea 02 XX Last administered on 11/11/18at 01:16; Admin Dose 1 EA; Start 11/11/18 at 02:00 Insulin Aspart (Novolog Insulin Pen) NOVOLOG *MODERATE* ALGORI... WITH MEALS BEDTIME SC Last administered on 11/11/18 09:02; Admin Dose 2 UNIT; Start 11/10/18 at 17:35 Miscellaneous Information 1 ea NOTE XX ; Start 11/10/18 at 16:30 Glucose (Glutose) 15 gm Q15M PRN PO DECREASED GLUCOSE; Start 11/10/18 at 16:30 Glucose (Glutose) 22.5 gm Q15M PRN PO DECREASED GLUCOSE; Start 11/10/18 at 16:30 Dextrose (D50w Syringe) 25 ml Q15M PRN IV DECREASED GLUCOSE; Start 11/10/18 at 16:30 Dextrose (D50w Syringe) 50 ml Q15M PRN IV DECREASED GLUCOSE; Start 11/10/18 at 16:30 Glucagon (Glucagen) 1 mg Q15M PRN IM DECREASED GLUCOSE; Start 11/10/18 at 16:30 Glucose (Glutose) 15 gm Q15M PRN BUCCAL DECREASED GLUCOSE; Start 11/10/18 at 16:30 Insulin Aspart (Novolog Insulin Pen) 7 unit WITH MEALS SC Last administered on 11/11/18 09:02; Admin Dose 7 UNIT; Start 11/10/18 at 19:00 Insulin Glargine (Lantus) 20 units QHS SC Last administered on 11/10/18at 21:15; Admin Dose 20 UNITS; Start 11/10/18 at 21:00 Potassium Chloride 100 ml @ 50 mls/hr Q2H IVPB Last administered on 11/11/18at 08:57; Admin Dose 50 MLS/HR; Start 11/11/18 at 06:30; Stop 11/11/18 at 12:29 Magnesium Sulfate 100 ml @ 25 mls/hr ONCE ONCE IVPB Last administered on 11/11/18at 08:03; Admin Dose 25 MLS/HR; Start 11/11/18 at 07:30; Stop 11/11/18 at 11:29 Vancomycin HCl (Vanco Iv Per Pharmacy) VANCOMYCIN PER PHARMACY PER PROTOCOL XX ; Start 11/11/18 at 07:00 Vancomycin HCl 250 ml @ 125 mls/hr ONCE IVPB ; Start 11/11/18 at 09:00; Stop 11/11/18 at 13:00 Vancomycin/Sodium Chloride 250 ml @ 125 mls/hr Q24H IVPB ; Start 11/12/18 at 09 :00 JOSÉ MIGUEL FARAH Nov 11, 2018 09:59
[2018-11-11] MEDS: ATORVASTATIN 80 MG TAB PO SCH (21:00)
[2018-11-11] MEDS: INSULIN GLARGINE [LANTus] (100 UNITS/ML) SYG SC SCH (21:00)
[2018-11-12] VITALS (16 sets, daily range): BP systolic 98–128; BP diastolic 55–82; PULSE 78–94; RESP 10–22
[2018-11-12] MEDS: SOD CHLORIDE 0.45% 1,000 ML IV SCH ×2 (04:22→17:32)
[2018-11-12] MEDS: INSULIN ASPART [NOVOLOG] 3 ML PEN SC SCH ×7 (07:35→20:19)
[2018-11-12] MEDS: ASPIRIN 81 MG TAB PO SCH (08:18)
[2018-11-12] MEDS: POLYETHYLENE GLYCOL 17 GM PACKET PO SCH (08:18)
[2018-11-12] MEDS: CLOPIDOGREL 75 MG TAB PO SCH (08:18)
[2018-11-12] MEDS: CEFTRIAXONE 1 GM/50 ML (PMX) 50 ML IVPB SCH (08:18)
[2018-11-12] MEDS: HEPARIN 5,000 UNIT/1 ML VIAL SC SCH ×2 (08:24→20:23)
[2018-11-12] MEDS ORDERED: VANCOMYCIN 750 MG (PMX) 250 ML IVPB SCH ×2 (09:00)
--- NOTE | 2018-11-12 09:34 | PN ---
Date/Time of Note Date/Time of Note DATE: 11/12/18 TIME: 09:28 Assessment/Plan VTE Prophylaxis Risk score (from Ns)>0 risk: 8 SCD applied (from [facility] [place], [place]): No SCD contraindicated: other Pharmacological prophylaxis: heparin Lines/Catheters IV Catheter Type (from [facility]): Central Line Central line still needed: Yes Urinary Cath still in place: Yes Reason Cath still needed: urinary retention Assessment/Plan Hospital Course S: Patient MRI shows acute CVA. Patient was on low normal sugars as well overnight. O: VS - see below PHYSICAL EXAMINATION: GENERAL: The patient lying in bed, family member at bedside, no acute distress HEENT: Pupils equal, round, and react to light. Extraocular muscles intact. NECK: Supple, no thyromegaly. LUNGS: Clear to auscultation bilaterally. CARDIOVASCULAR: S1, S2 heard. No murmur, rubs or gallops. ABDOMEN: Soft, nontender, nondistended. Normal bowel sounds. No rebound or guarding. MUSCULOSKELETAL: No lower extremity edema bilaterally. NEUROLOGIC: Slight right gaze preference, no apparent focal deficits. Gait was not assessed. MRI brain without contrast: IMPRESSION: 1. Punctate probable acute infarct in the right frontal opercular cortex. 2. Moderate diffuse cerebral volume loss. Mild small vessel ischemic changes. 3. Old infarcts in the bilateral cerebellar hemispheres, with small associated old blood products on the left. 2D ECHO: Conclusions: Normal left ventricular cavity size. Left ventricular wall thickness upper limits of normal. Mild global left ventricular systolic dysfunction. Ejection fraction is visually estimated at 35 %. Tissue Doppler/Mitral Doppler indices are consistent with impaired relaxation (Stage I diastolic dysfunction). These segments of the LV are hypokinetic mid anterior segment, apical anterior segment, apical lateral segment, inferior apex segment, anteroseptum mid segment, apex and apical septum. The left atrium is normal in size. Mild mitral leaflet calcification. Mild mitral annular calcification. Mild mitral valve regurgitation. No significant aortic stenosis or insufficiency. Aortic cusps appear mildly calcified. Normal appearance of the tricuspid valve. Estimated peak PA systolic pressure 43 mmHg. There is mild tricuspid regurgitation. Normal size with poor respiratory collapse consistent with elevated right atrial pressure. ASSESSMENT AND PLAN: 73-year-old female with prior history of hypertension, prior stroke, hypothyroidism, diabetes who comes in with altered mental status and signs of septic shock secondary to UTI, now acute CVA. 1. Altered mental status- secondary to septic shock secondary from UTI, also secondary to acute stroke. -Continue broad spectrum antibiotics. Follow up final culture results of the urine. -Continue low dose IV fluids, trend the lactic acid. Tylenol p.r.n. pain and fevers. 2. History of prior stroke - Again, acute stroke seen on MRI of the brain, see number 1. -Continue to allow for permissive hypertension at this time. -We will consult neurology team given acute stroke findings on MRI brain -Continue PT, OT and speech therapy consults as well. - Continue high-dose Lipitor and aspirin. For now, continue home aspirin and Plavix cautiously. 3. Essential hypertension. Again, see above. - Allow for permissive hypertension at this time 4. History of diabetes- A1c = 8.8. Sugars in the low normal range overnight -Will slightly lower Lantus insulin and sliding scale insulin, aspart with meals 5. Hypothyroidism. Follow up thyroid studies. Continue levothyroxine. 6. DVT prophylaxis. Heparin subQ. 7. GI prophylaxis - H2 leo. Critical care time spent in patient care today equals 45 minutes Result Diagram: 11/12/18 0433 11/12/18 0433 Results 24hrs Laboratory Tests Test 11/11/18 11:47 11/11/18 12:09 11/11/18 12:27 11/11/18 18:25 Bedside Glucose 60 L 71 90 239 H Test 11/11/18 20:58 11/11/18 23:41 11/12/18 04:33 11/12/18 08:17 Bedside Glucose 102 76 127 White Blood Count 8.8 Red Blood Count 3.50 L Hemoglobin 9.9 L Hematocrit 28.9 L Mean Corpuscular 82.6 Volume Mean Corpuscular 28.3 L Hemoglobin Mean Corpuscular 34.3 Hemoglobin Concent Red Cell 16.5 H Distribution Width Platelet Count 192 Mean Platelet Volume 11.1 H Immature 1.000 H Granulocytes % Neutrophils % Segmented 66 Neutrophils % (Manual) Band Neutrophils % 13 H (Manual) Lymphocytes % Lymphocytes % 13 L (Manual) Reactive Lymphocytes 3 H % (Manual) Monocytes % Monocytes % (Manual) 3 Eosinophils % Eosinophils % 2 (Manual) Basophils % Nucleated Red Blood 0.0 Cells % Immature 0.090 H Granulocytes # Neutrophils # Neutrophils # 5.9 (Manual) Band Neutrophils # 1.1 H Lymphocytes (Manual) 1.1 Lymphocytes # Reactive Lymphocytes 0.2 H # Monocytes # Monocytes # (Manual) 0.2 L Eosinophils # Basophils # Nucleated Red Blood Cells # Platelet Estimate NORMAL Giant Platelets 2 H Platelet Morphology @See below Comment Poikilocytosis 2+ Anisocytosis 1+ Sodium Level 134 L Potassium Level 3.5 Chloride Level 102 Carbon Dioxide Level 24 Anion Gap 8 Blood Urea Nitrogen 13 Creatinine 0.52 Est Glomerular Filtrat Rate mL/min Glucose Level 95 # Calcium Level 7.9 L Phosphorus Level 2.1 L Magnesium Level 2.4 # Exam/Review of Systems Exam Vitals Vital Signs Date Temp Pulse Resp B/P (MAP) Pulse Ox O2 O2 Flow FiO2 Time Delivery Rate 11/12/18 87 20 110/69 98 Room Air 09:00 (83) 11/12/18 97.8 08:00 11/12/18 2.0 04:00 11/12/18 27 00:22 Intake and Output 11/11/18 11/11/18 11/12/18 1515:00 23:00 07:00 IntakeIntake Total 1685.00 ml 780 ml 600 ml OutputOutput Total 380 ml 550 ml 1160 ml BalanceBalance 1305.00 ml 230 ml -560 ml Results Results 24hrs Laboratory Tests Test 11/11/18 11:47 11/11/18 12:09 11/11/18 12:27 11/11/18 18:25 Bedside Glucose 60 L 71 90 239 H Test 11/11/18 20:58 11/11/18 23:41 11/12/18 04:33 11/12/18 08:17 Bedside Glucose 102 76 127 White Blood Count 8.8 Red Blood Count 3.50 L Hemoglobin 9.9 L Hematocrit 28.9 L Mean Corpuscular 82.6 Volume Mean Corpuscular 28.3 L Hemoglobin Mean Corpuscular 34.3 Hemoglobin Concent Red Cell 16.5 H Distribution Width Platelet Count 192 Mean Platelet Volume 11.1 H Immature 1.000 H Granulocytes % Neutrophils % Segmented 66 Neutrophils % (Manual) Band Neutrophils % 13 H (Manual) Lymphocytes % Lymphocytes % 13 L (Manual) Reactive Lymphocytes 3 H % (Manual) Monocytes % Monocytes % (Manual) 3 Eosinophils % Eosinophils % 2 (Manual) Basophils % Nucleated Red Blood 0.0 Cells % Immature 0.090 H Granulocytes # Neutrophils # Neutrophils # 5.9 (Manual) Band Neutrophils # 1.1 H Lymphocytes (Manual) 1.1 Lymphocytes # Reactive Lymphocytes 0.2 H # Monocytes # Monocytes # (Manual) 0.2 L Eosinophils # Basophils # Nucleated Red Blood Cells # Platelet Estimate NORMAL Giant Platelets 2 H Platelet Morphology @See below Comment Poikilocytosis 2+ Anisocytosis 1+ Sodium Level 134 L Potassium Level 3.5 Chloride Level 102 Carbon Dioxide Level 24 Anion Gap 8 Blood Urea Nitrogen 13 Creatinine 0.52 Est Glomerular Filtrat Rate mL/min Glucose Level 95 # Calcium Level 7.9 L Phosphorus Level 2.1 L Magnesium Level 2.4 # Medications Medication Current Medications IV Flush (NS 3 ml) 3 ml PER PROTOCOL IV ; Start 11/10/18 at 12:30 Ondansetron HCl (Zofran Inj) 4 mg Q6H PRN IV NAUSEA/VOMITING; Start 11/10/18 at 12:30 Acetaminophen (Tylenol Tab) 650 mg Q6H PRN PO .PAIN 1-3 OR TEMP Last administered on 11/10/18at 21:52; Admin Dose 650 MG; Start 11/10/18 at 12:30 Acetaminophen/ Hydrocodone Bitart ([place] (5/325)) 1 tab Q6H PRN PO .MOD PAIN 4- 6; Start 11/10/18 at 12:30 Morphine Sulfate (morphine) 2 mg Q4H PRN IV .SEVERE PAIN 7-10; Start 11/10/18 at 12:30 Docusate Sodium (Colace) 100 mg Q12H PRN PO .CONSTIPATION; Start 11/10/18 at 12:30 Magnesium Hydroxide (Milk Of Mag) 30 ml DAILY PRN PO .CONSTIPATION; Start 11/10/18 at 12:30 Heparin Sodium (Porcine) (Heparin (5000 Units/1ml)) 5,000 unit Q12 SC Last administered on 11/12/18at 08:24; Admin Dose 5,000 UNIT; Start 11/10/18 at 21:00 Sodium Chloride 1,000 ml @ 75 mls/hr [id number] IV Last administered on 11/12/18at 04:22; Admin Dose 75 MLS/HR; Start 11/10/18 at 12:22 Lorazepam (Ativan) 0.5 mg Q6H PRN IV ANXIETY Last administered on 11/10/18at 22:05; Admin Dose 0.5 MG; Start 11/10/18 at 12:30 Albuterol/ Ipratropium (Duoneb) 3 ml Q4H RESP THERAPY PRN HHN SHORTNESS OF BREATH; Start 11/10/18 at 12:30 Hydralazine HCl (Apresoline) 10 mg Q6H PRN IV ELEVATED BLOOD PRESSURE; Start 11/10/18 at 12:30 Ceftriaxone Sodium 50 ml @ 100 mls/hr Q24H IVPB Last administered on 11/12/18 08:18; Admin Dose 100 MLS/HR; Start 11/11/18 at 09:00 Nitroglycerin (Nitroglycerin (Sl Tab) 0.4 Mg) 1 tab Q5M PRN SL ANGINA; Start 11/10/18 at 12:30 Aspirin (Aspirin) 81 mg DAILY PO Last administered on 11/12/18 08:18; Admin Dose 81 MG; Start 11/11/18 at 09:00 Atorvastatin Calcium (Lipitor) 80 mg HS PO Last administered on 11/11/18 21:00; Admin Dose 80 MG; Start 11/10/18 at 21:00 Clopidogrel Bisulfate (plaVIX) 75 mg DAILY PO Last administered on 11/12/18 08:18; Admin Dose 75 MG; Start 11/11/18 at 09:00 Polyethylene Glycol (Miralax) 17 gm DAILY PO Last administered on 11/12/18 08:18; Admin Dose 17 GM; Start 11/11/18 at 09:00 Senna (Senokot) 1 tab Q12H PRN PO CONSTIPATION; Start 11/10/18 at 12:30 Diagnostic Test (Pha) (Accu-Chek) 1 ea 02 XX Last administered on 11/11/18at 23:44; Admin Dose 1 EA; Start 11/11/18 at 02:00 Insulin Aspart (Novolog Insulin Pen) NOVOLOG *MODERATE* ALGORI... WITH MEALS BEDTIME SC Last administered on 11/11/18 18:29; Admin Dose 6 UNIT; Start 11/10/18 at 17:35 Miscellaneous Information 1 ea NOTE XX ; Start 11/10/18 at 16:30 Glucose (Glutose) 15 gm Q15M PRN PO DECREASED GLUCOSE Last administered on 11/11/18at 12:12; Admin Dose 15 GM; Start 11/10/18 at 16:30 Glucose (Glutose) 22.5 gm Q15M PRN PO DECREASED GLUCOSE; Start 11/10/18 at 16:30 Dextrose (D50w Syringe) 25 ml Q15M PRN IV DECREASED GLUCOSE; Start 11/10/18 at 16:30 Dextrose (D50w Syringe) 50 ml Q15M PRN IV DECREASED GLUCOSE; Start 11/10/18 at 16:30 Glucagon (Glucagen) 1 mg Q15M PRN IM DECREASED GLUCOSE; Start 11/10/18 at 16:30 Glucose (Glutose) 15 gm Q15M PRN BUCCAL DECREASED GLUCOSE Last administered on 11/11/18at 11:53; Admin Dose 15 GM; Start 11/10/18 at 16:30 Vancomycin HCl (Vanco Iv Per Pharmacy) VANCOMYCIN PER PHARMACY PER PROTOCOL XX ; Start 11/11/18 at 07:00 Vancomycin/Sodium Chloride 250 ml @ 125 mls/hr Q24H IVPB Last administered on 11/12/18at 08:18; Admin Dose 125 MLS/HR; Start 11/12/18 at 09:00 Insulin Aspart (Novolog Insulin Pen) 4 unit WITH MEALS SC ; Start 11/12/18 at 1 1:30 Insulin Glargine (Lantus) 15 units QHS SC ; Start 11/12/18 at 21:00 Potassium Phosphate 20 meq/ Sodium Chloride 254.5455 ml @ 63.636 m... ONCE ONCE IVPB ; Start 11/12/18 at 10:30; Stop 11/12/18 at 14:29 JOSÉ MIGUEL FARAH 13, 2019 09:33
[2018-11-12] MEDS ORDERED: POTASSIUM PHOSPHATE 20 MEQ in SOD CHLORIDE 0.9% 250 ML IVPB ONE (10:30)
[2018-11-12] MEDS ORDERED: INSULIN ASPART [NOVOLOG] 3 ML PEN SC SCH (11:30)
--- NOTE | 2018-11-12 15:04 | CONS ---
Assessment/Plan Assessment/Plan Hospital Course 73 F c/ reported prior Hx of stroke and other cerebrovascular risk factors, who presents for evaluation of ams. MRI brain was concerning for a possible punctate new infarct in the R frontal operculum...for which neurology is consulted.. The MRI abnormality is potentially artifactual.. As an aside, the clinical picture is most consistent with an acute toxic- metabolic encephalopathy... CTA head is notable for diffuse athero CTA Neck/CUS are unremarkable Echo is notable for LV hypokinesis and depressed EF of 35% LDL 53 P: Agree w/ plavix for secondary stroke prevention; LDL is at goal.. Synthroid adjustment per primary [place] as necessary Limit sedating medications where possible PT/OT/ST as necessary Will follow clinically Consultation Date/Type/Reason Admit Date/Time Nov 10, 2018 at 10:49 Type of Consult Neurology Reason for Consultation stroke Requesting Provider: JOSÉ MIGUEL FRAAH Date/Time of Note DATE: 11/12/18 TIME: 15:04 Hx of Present Illness Poor historian. It is elsewhere noted: A 73-year-old female with past medical history of prior stroke, hypertension, diabetes, and hypothyroidism who comes in with altered mental status. Most of the information is obtained from the ER documentation, the patient gives a limited HPI at this time. Per records, apparently, the patient was having altered mental status that occurred around 11:00 p.m. last night that the family noticed. Apparently, she went to bed, it is unclear, but in any event early this morning, there was no concern that EMS was called. The patient was brought into the ER around 8:00 a.m. She was found to be altered in the ER, but otherwise answering simple questions. She was found to have elevated blood sugar at 353. Initially, per recommendation, code stroke was considered and was going to be initiated. For unclear reasons, this was not followed through, but not In the meantime, the patient was also found with low systolic blood pressure in the 80s today and then she was found with temperature of 103.1 and placed on pressor support with signs of septic shock secondary to likely UTI. She did have a head CT today that showed no intracranial hemorrhages or acute abnormalities appreciated, although there are chronic bilateral cerebellar infarcts noted. Lactic acid was also found to be elevated at 2.7. 12 PT ROS is limited by ams Exam/Review of Systems Exam Vitals Vital Signs Date Temp Pulse Resp B/P (MAP) Pulse Ox O2 O2 Flow FiO2 Time Delivery Rate 11/12/18 2.0 12:20 11/12/18 97.5 78 22 119/70 96 Room Air 12:17 (86) 11/12/18 27 00:22 Intake and Output 11/11/18 11/11/18 11/12/18 1414:59 22:59 06:59 IntakeIntake Total 1702.50 ml 780 ml 600 ml OutputOutput Total 310 ml 475 ml 1285 ml BalanceBalance 1392.50 ml 305 ml -685 ml Exam PE: Gen Appearance: No Apparent Distress HEENT: Normocephalic Cardiovascular: Regular rate Lungs: Clear bilaterally Abdomen: Soft Extremities: Dry NE: The patient was alert, though somewhat disoriented. Language was normal. Fund of knowledge was limited. Pupils were equal and reactive to light. There was no afferent pupillary defect. Visual melissa were normal. Funduscopic examination was limited. Extra-ocular movements were full. Ptosis was absent. There was no nystagmus. Facial sensation was normal. Face was symmetric with normal strength. Hearing was intact. Palate movements were normal. Neck strength was normal. There was normal tongue bulk and speed of movement. Tone was normal. Muscle bulk was normal. I did not see fasciculations. Arms and L leg were strong; R leg was pain-limited. Vibration sensation was normal. Temperature and pinprick sensation was normal. Rapid alternating movements were normal. There was no dysmetria. There was no intention tremor. Gait was deferred due to bedrest. Arm and leg reflexes were 2+ and symmetric. Jara's sign was absent. Plantar responses were flexor. Results Result Diagram: 11/12/18 0433 11/12/18 0433 Results 24hrs Laboratory Tests Test 11/11/18 18:25 11/11/18 20:58 11/11/18 23:41 11/12/18 04:33 Bedside Glucose 239 H 102 76 White Blood Count 8.8 Red Blood Count 3.50 L Hemoglobin 9.9 L Hematocrit 28.9 L Mean Corpuscular 82.6 Volume Mean Corpuscular 28.3 L Hemoglobin Mean Corpuscular 34.3 Hemoglobin Concent Red Cell 16.5 H Distribution Width Platelet Count 192 Mean Platelet Volume 11.1 H Immature 1.000 H Granulocytes % Neutrophils % Segmented 66 Neutrophils % (Manual) Band Neutrophils % 13 H (Manual) Lymphocytes % Lymphocytes % 13 L (Manual) Reactive Lymphocytes 3 H % (Manual) Monocytes % Monocytes % (Manual) 3 Eosinophils % Eosinophils % 2 (Manual) Basophils % Nucleated Red Blood 0.0 Cells % Immature 0.090 H Granulocytes # Neutrophils # Neutrophils # 5.9 (Manual) Band Neutrophils # 1.1 H Lymphocytes (Manual) 1.1 Lymphocytes # Reactive Lymphocytes 0.2 H # Monocytes # Monocytes # (Manual) 0.2 L Eosinophils # Basophils # Nucleated Red Blood Cells # Platelet Estimate NORMAL Giant Platelets 2 H Platelet Morphology @See below Comment Poikilocytosis 2+ Anisocytosis 1+ Sodium Level 134 L Potassium Level 3.5 Chloride Level 102 Carbon Dioxide Level 24 Anion Gap 8 Blood Urea Nitrogen 13 Creatinine 0.52 Est Glomerular Filtrat Rate mL/min Glucose Level 95 # Calcium Level 7.9 L Phosphorus Level 2.1 L Magnesium Level 2.4 # Test 11/12/18 08:17 11/12/18 11:44 Bedside Glucose 127 125 Medications Medication Current Medications IV Flush (NS 3 ml) 3 ml PER PROTOCOL IV ; Start 11/10/18 at 12:30 Ondansetron HCl (Zofran Inj) 4 mg Q6H PRN IV NAUSEA/VOMITING; Start 11/10/18 at 12:30 Acetaminophen (Tylenol Tab) 650 mg Q6H PRN PO .PAIN 1-3 OR TEMP Last administered on 11/10/18at 21:52; Admin Dose 650 MG; Start 11/10/18 at 12:30 Acetaminophen/ Hydrocodone Bitart ([place] (5/325)) 1 tab Q6H PRN PO .MOD PAIN 4- 6; Start 11/10/18 at 12:30 Morphine Sulfate (morphine) 2 mg Q4H PRN IV .SEVERE PAIN 7-10; Start 11/10/18 at 12:30 Docusate Sodium (Colace) 100 mg Q12H PRN PO .CONSTIPATION; Start 11/10/18 at 12 :30 Magnesium Hydroxide (Milk Of Mag) 30 ml DAILY PRN PO .CONSTIPATION; Start 11/10/18 at 12:30 Heparin Sodium (Porcine) (Heparin (5000 Units/1ml)) 5,000 unit Q12 SC Last administered on 3/13/19at 08:24; Admin Dose 5,000 UNIT; Start 11/10/18 at 21:00 Sodium Chloride 1,000 ml @ 75 mls/hr [id number] IV Last administered on 11/12/18 04:22; Admin Dose 75 MLS/HR; Start 11/10/18 at 12:22 Lorazepam (Ativan) 0.5 mg Q6H PRN IV ANXIETY Last administered on 11/10/18 22:05; Admin Dose 0.5 MG; Start 11/10/18 at 12:30 Albuterol/ Ipratropium (Duoneb) 3 ml Q4H RESP THERAPY PRN HHN SHORTNESS OF BREATH; Start 11/10/18 at 12:30 Hydralazine HCl (Apresoline) 10 mg Q6H PRN IV ELEVATED BLOOD PRESSURE; Start 11/10/18 at 12:30 Ceftriaxone Sodium 50 ml @ 100 mls/hr Q24H IVPB Last administered on 11/12/18 08:18; Admin Dose 100 MLS/HR; Start 11/11/18 at 09:00 Nitroglycerin (Nitroglycerin (Sl Tab) 0.4 Mg) 1 tab Q5M PRN SL ANGINA; Start 11/10/18 at 12:30 Atorvastatin Calcium (Lipitor) 80 mg HS PO Last administered on 11/11/18 21:00; Admin Dose 80 MG; Start 11/10/18 at 21:00 Clopidogrel Bisulfate (plaVIX) 75 mg DAILY PO Last administered on 11/12/18 08:18; Admin Dose 75 MG; Start 11/11/18 at 09:00 Polyethylene Glycol (Miralax) 17 gm DAILY PO Last administered on 11/12/18 08:18; Admin Dose 17 GM; Start 11/11/18 at 09:00 Senna (Senokot) 1 tab Q12H PRN PO CONSTIPATION; Start 11/10/18 at 12:30 Diagnostic Test (Pha) (Accu-Chek) 1 ea 02 XX Last administered on 11/11/18 23:44; Admin Dose 1 EA; Start 11/11/18 at 02:00 Insulin Aspart (Novolog Insulin Pen) NOVOLOG *MODERATE* ALGORI... WITH MEALS BEDTIME SC Last administered on 11/11/18 18:29; Admin Dose 6 UNIT; Start 11/10/18 at 17:35 Miscellaneous Information 1 ea NOTE XX ; Start 11/10/18 at 16:30 Glucose (Glutose) 15 gm Q15M PRN PO DECREASED GLUCOSE Last administered on 11/11/18at 12:12; Admin Dose 15 GM; Start 11/10/18 at 16:30 Glucose (Glutose) 22.5 gm Q15M PRN PO DECREASED GLUCOSE; Start 11/10/18 at 16:30 Dextrose (D50w Syringe) 25 ml Q15M PRN IV DECREASED GLUCOSE; Start 11/10/18 at 16:30 Dextrose (D50w Syringe) 50 ml Q15M PRN IV DECREASED GLUCOSE; Start 11/10/18 at 16:30 Glucagon (Glucagen) 1 mg Q15M PRN IM DECREASED GLUCOSE; Start 11/10/18 at 16:30 Glucose (Glutose) 15 gm Q15M PRN BUCCAL DECREASED GLUCOSE Last administered on 11/11/18at 11:53; Admin Dose 15 GM; Start 11/10/18 at 16:30 Vancomycin HCl (Vanco Iv Per Pharmacy) VANCOMYCIN PER PHARMACY PER PROTOCOL XX ; Start 11/11/18 at 07:00 Vancomycin/Sodium Chloride 250 ml @ 125 mls/hr Q24H IVPB Last administered on 11/12/18at 08:18; Admin Dose 125 MLS/HR; Start 11/12/18 at 09:00 Insulin Aspart (Novolog Insulin Pen) 4 unit WITH MEALS SC ; Start 11/12/18 at 11:30 Insulin Glargine (Lantus) 14 units QHS SC ; Start 11/12/18 at 21:00 Carvedilol (Coreg) 3.125 mg DAILY PO ; Start 11/13/18 at 09:00 Levothyroxine Sodium (Synthroid) 125 mcg DAILY PO ; Start 11/13/18 at 09:00 Aspirin (Aspirin) 162 mg DAILY PO ; Start 11/13/18 at 09:00 Past Medical History reviewed Home Meds Reported Medications Sennosides* (Senna Lax*) 8.6 Mg Tablet, 1 TAB PO Q12H PRN for CONSTIPATION, TAB 11/10/18 Polyethylene Glycol 3350 ([id number]) 238 Gm Powder, 17 GM ORAL DAILY 11/10/18 Insulin Glargine,Hum.rec.anlog (Basaglar Kwikpen U-100) 100 Unit/1 Ml Insuln.pen, 20 UNITS SC HS 11/10/18 Levothyroxine Sodium* (Levothyroxine Sodium*) 125 Mcg Tablet, 1 TAB ORAL DAILY 11/10/18 Atorvastatin* (Atorvastatin*) 80 Mg Tablet, 1 TAB ORAL HS 11/10/18 Clopidogrel Bisulfate (Clopidogrel) 75 Mg Tablet, 1 TAB ORAL DAILY 11/10/18 Aspirin (Aspirin) 81 Mg Chew, 1 TAB ORAL DAILY 11/10/18 Metformin Hcl* (Metformin Hcl*) 1,000 Mg Tablet, 500 MG ORAL BID 11/10/18 Carvedilol* (Carvedilol*) 3.125 Mg Tablet, 1 TAB ORAL DAILY 11/10/18 Medications Current Medications IV Flush (NS 3 ml) 3 ml PER PROTOCOL IV ; Start 11/10/18 at 12:30 Ondansetron HCl (Zofran Inj) 4 mg Q6H PRN IV NAUSEA/VOMITING; Start 11/10/18 at 12:30 Acetaminophen (Tylenol Tab) 650 mg Q6H PRN PO .PAIN 1-3 OR TEMP Last administered on 11/10/18at 21:52; Admin Dose 650 MG; Start 11/10/18 at 12:30 Acetaminophen/ Hydrocodone Bitart ([place] (5/325)) 1 tab Q6H PRN PO .MOD PAIN 4-6; Start 11/10/18 at 12:30 Morphine Sulfate (morphine) 2 mg Q4H PRN IV .SEVERE PAIN 7-10; Start 11/10/18 at 12:30 Docusate Sodium (Colace) 100 mg Q12H PRN PO .CONSTIPATION; Start 11/10/18 at 12:30 Magnesium Hydroxide (Milk Of Mag) 30 ml DAILY PRN PO .CONSTIPATION; Start 11/10/18 at 12:30 Heparin Sodium (Porcine) (Heparin (5000 Units/1ml)) 5,000 unit Q12 SC Last administered on 11/12/18at 08:24; Admin Dose 5,000 UNIT; Start 11/10/18 at 21:00 Sodium Chloride 1,000 ml @ 75 mls/hr [id number] IV Last administered on 11/12/18at 04:22; Admin Dose 75 MLS/HR; Start 11/10/18 at 12:22 Lorazepam (Ativan) 0.5 mg Q6H PRN IV ANXIETY Last administered on 11/10/18at 22:05; Admin Dose 0.5 MG; Start 11/10/18 at 12:30 Albuterol/ Ipratropium (Duoneb) 3 ml Q4H RESP THERAPY PRN HHN SHORTNESS OF BREATH; Start 11/10/18 at 12:30 Hydralazine HCl (Apresoline) 10 mg Q6H PRN IV ELEVATED BLOOD PRESSURE; Start 11/10/18 at 12:30 Ceftriaxone Sodium 50 ml @ 100 mls/hr Q24H IVPB Last administered on 11/12/18 08:18; Admin Dose 100 MLS/HR; Start 11/11/18 at 09:00 Nitroglycerin (Nitroglycerin (Sl Tab) 0.4 Mg) 1 tab Q5M PRN SL ANGINA; Start 11/10/18 at 12:30 Atorvastatin Calcium (Lipitor) 80 mg HS PO Last administered on 11/11/18 21:00; Admin Dose 80 MG; Start 11/10/18 at 21:00 Clopidogrel Bisulfate (plaVIX) 75 mg DAILY PO Last administered on 11/12/18 08:18; Admin Dose 75 MG; Start 11/11/18 at 09:00 Polyethylene Glycol (Miralax) 17 gm DAILY PO Last administered on 11/12/18 08:18; Admin Dose 17 GM; Start 11/11/18 at 09:00 Senna (Senokot) 1 tab Q12H PRN PO CONSTIPATION; Start 11/10/18 at 12:30 Diagnostic Test (Pha) (Accu-Chek) 1 ea 02 XX Last administered on 11/11/18at 23:44; Admin Dose 1 EA; Start 11/11/18 at 02:00 Insulin Aspart (Novolog Insulin Pen) NOVOLOG *MODERATE* [place]... WITH MEALS BEDTIME SC Last administered on 11/11/18 18:29; Admin Dose 6 UNIT; Start 11/10/18 at 17:35 Miscellaneous Information 1 ea NOTE XX ; Start 11/10/18 at 16:30 Glucose (Glutose) 15 gm Q15M PRN PO DECREASED GLUCOSE Last administered on 11/11/18at 12:12; Admin Dose 15 GM; Start 11/10/18 at 16:30 Glucose (Glutose) 22.5 gm Q15M PRN PO DECREASED GLUCOSE; Start 11/10/18 at 16:30 Dextrose (D50w Syringe) 25 ml Q15M PRN IV DECREASED GLUCOSE; Start 11/10/18 at 16:30 Dextrose (D50w Syringe) 50 ml Q15M PRN IV DECREASED GLUCOSE; Start 11/10/18 at 16:30 Glucagon (Glucagen) 1 mg Q15M PRN IM DECREASED GLUCOSE; Start 11/10/18 at 16:30 Glucose (Glutose) 15 gm Q15M PRN BUCCAL DECREASED GLUCOSE Last administered on 11/11/18at 11:53; Admin Dose 15 GM; Start 11/10/18 at 16:30 Vancomycin HCl (Vanco Iv Per Pharmacy) VANCOMYCIN PER PHARMACY PER PROTOCOL XX ; Start 11/11/18 at 07:00 Vancomycin/Sodium Chloride 250 ml @ 125 mls/hr Q24H IVPB Last administered on 11/12/18at 08:18; Admin Dose 125 MLS/HR; Start 11/12/18 at 09:00 Insulin Aspart (Novolog Insulin Pen) 4 unit WITH MEALS SC ; Start 11/12/18 at 11:30 Insulin Glargine (Lantus) 14 units QHS SC ; Start 11/12/18 at 21:00 Carvedilol (Coreg) 3.125 mg DAILY PO ; Start 11/13/18 at 09:00 Levothyroxine Sodium (Synthroid) 125 mcg DAILY PO ; Start 11/13/18 at 09:00 Aspirin (Aspirin) 162 mg DAILY PO ; Start 11/13/18 at 09:00 Allergies: Coded Allergies: No Known Allergy (Unverified , 11/10/18) Past Surgical History reviewed Social History reviewed Smoking Status: Never smoker EVERETTE ORNELAS NP Nov 12, 2018 15:04 NANNETTE DORANTES Nov 12, 2018 16:59
[2018-11-12] MEDS: ATORVASTATIN 80 MG TAB PO SCH (20:20)
[2018-11-12] MEDS ORDERED: INSULIN GLARGINE [LANTus] (100 UNITS/ML) SYG SC SCH ×2 (21:00)
[2018-11-13] VITALS: BP 132/78; PULSE 75; PULSE 76; RESP 18
[2018-11-13] MEDS: ACCU-CHEK XX SCH (01:44)
[2018-11-13 04:00] VITALS: BP 126/76; PULSE 70; PULSE 72; RESP 18
[2018-11-13] MEDS: SOD CHLORIDE 0.45% 1,000 ML IV SCH (06:44)
[2018-11-13] MEDS: INSULIN ASPART [NOVOLOG] 3 ML PEN SC SCH ×3 (08:00→11:58)
[2018-11-13 08:07] VITALS: PULSE 80
[2018-11-13 08:12] VITALS: BP 125/74; PULSE 79; RESP 22
[2018-11-13] MEDS: POLYETHYLENE GLYCOL 17 GM PACKET PO SCH (08:33)
[2018-11-13] MEDS: CLOPIDOGREL 75 MG TAB PO SCH (08:36)
[2018-11-13] MEDS: CEFTRIAXONE 1 GM/50 ML (PMX) 50 ML IVPB SCH (08:37)
[2018-11-13] MEDS: HEPARIN 5,000 UNIT/1 ML VIAL SC SCH (08:55)
[2018-11-13] MEDS ORDERED: ASPIRIN 81 MG TAB PO SCH (09:00)
[2018-11-13] MEDS ORDERED: LEVOTHYROXINE 125 MCG TAB PO SCH (09:00)
[2018-11-13] MEDS ORDERED: POTASSIUM CHLORIDE (SR) 20 MEQ TAB PO STA (10:47)
--- NOTE | 2018-11-13 11:30 | PDOCDIS ---
Discharge Instructions CONDITION [id number] Patient Condition: [id number] Stable HOME CARE INSTRUCTIONS: [id number] Diet Instructions: [id number] Low Fat /Cholesterol ACTIVITY: [id number] Activity Restrictions: [id number] Slowly Increase Activity Rest between Activity Avoid heavy lifting FOLLOW UP/APPOINTMENTS Follow-up Plan Please take your medications as prescribed, see your doctor in the clinic next week. JOSÉ MIGUEL FARAH Nov 13, 2018 11:30
[2018-11-13] MEDS ORDERED: LEVO750T25 PO (11:31)
[2018-11-13] MEDS ORDERED: FLUC100T39 PO (11:31)
--- NOTE | 2018-11-13 11:37 | DS ---
Date/Time of Note Date/Time of Note DATE: 11/13/18 TIME: 11:33 Discharge Summary Admission/Discharge Info Admit Date/Time Nov 10, 2018 at 10:49 Discharge Date/Time Discharge Diagnosis 1. Altered mental status- secondary to septic shock secondary from UTI-resolved now 2. History of prior stroke -symptoms resolved, again, acute stroke seen on MRI of the brain 3. Essential hypertension. Again, see above. 4. History of diabetes- A1c = 8.8. Sugars stable 5. Hypothyroidism Patient Condition: Stable Procedures MRI brain without contrast: IMPRESSION: 1. Punctate probable acute infarct in the right frontal opercular cortex. 2. Moderate diffuse cerebral volume loss. Mild small vessel ischemic changes. 3. Old infarcts in the bilateral cerebellar hemispheres, with small associated old blood products on the left. 2D ECHO: Conclusions: Normal left ventricular cavity size. Left ventricular wall thickness upper limits of normal. Mild global left ventricular systolic dysfunction. Ejection fraction is visually estimated at 35 %. Tissue Doppler/Mitral Doppler indices are consistent with impaired relaxation (Stage I diastolic dysfunction). These segments of the LV are hypokinetic mid anterior segment, apical anterior segment, apical lateral segment, inferior apex segment, anteroseptum mid segment, apex and apical septum. The left atrium is normal in size. Mild mitral leaflet calcification. Mild mitral annular calcification. Mild mitral valve regurgitation. No significant aortic stenosis or insufficiency. Aortic cusps appear mildly calcified. Normal appearance of the tricuspid valve. Estimated peak PA systolic pressure 43 mmHg. There is mild tricuspid regurgitation. Normal size with poor respiratory collapse consistent with elevated right atrial pressure. Hx of Present Illness 73-year-old female with past medical history of prior stroke, hypertension, diabetes, and hypothyroidism who comes in with altered mental status. Most of the information is obtained from the ER documentation, the patient gives a limited HPI at this time. Per records, apparently, the patient was having altered mental status that occurred around 11:00 p.m. last night that the family noticed. Apparently, she went to bed, it is unclear, but in any event early this morning, there was no concern that EMS was called. The patient was brought into the ER around 8:00 a.m. She was found to be altered in the ER, but otherwise answering simple questions. She was found to have elevated blood sugar at 353. Initially, per recommendation, code stroke was considered and was going to be initiated. For unclear reasons, this was not followed through, but not In the meantime, the patient was also found with low systolic blood pressure in the 80s today and then she was found with temperature of 103.1 and placed on pressor support with signs of septic shock secondary to likely UTI. She did have a head CT today that showed no intracranial hemorrhages or acute abnormalities appreciated, although there are chronic bilateral cerebellar infarcts noted. Lactic acid was also found to be elevated at 2.7. Hospital Course Patient initially admitted to intensive care unit, placed on pressor support. She was also placed on antibiotic treatment. Found with septic shock secondary to UTI. Her labs improved, fever subsided. Eventually she was weaned off of the pressors. Her blood culture showed alpha hemolytic strep infection, and her urine culture eventually came back positive for yeast. A1c is found to be 8.8, and insulins were adjusted accordingly. Her high sugars in the 400 range resolved early on during her admission, no DKA. She worked with physical therapy as well and ambulated fairly well with them. Eventually she was transfe rred out of the intensive care unit. She was able to ambulate with some assistance, tolerated p.o. diet. Her MRI of the brain did show acute stroke, however, and she was seen by neurology for this. She had no significant focal deficits however. Because she is clinically improved and clearance from the end user consultant teams has been obtained, she will be discharged home today in impr barbra condition, she will go home with home health. See below for full list of discharge medications. Home Meds Active Scripts Fluconazole* (Fluconazole*) 100 Mg Tablet, 100 MG PO DAILY, #7 TAB Prov:JOSÉ MIGUEL FARAH S. 11/13/18 Levofloxacin* (Levaquin*) 750 Mg Tablet, 750 MG PO DAILY for 7 Days, #7 TAB Prov:JOSÉ MIGUEL FARAH S. 11/13/18 Reported Medications Sennosides* (Senna Lax*) 8.6 Mg Tablet, 1 TAB PO Q12H PRN for CONSTIPATION, TAB 11/10/18 Polyethylene Glycol 3350 ([id number]) 238 Gm Powder, 17 GM ORAL DAILY 11/10/18 Insulin Glargine,Hum.rec.anlog (Basaglar Kwikpen U-100) 100 Unit/1 Ml Insuln.pen, 20 UNITS SC HS 11/10/18 Levothyroxine Sodium* (Levothyroxine Sodium*) 125 Mcg Tablet, 1 TAB ORAL DAILY 11/10/18 Atorvastatin* (Atorvastatin*) 80 Mg Tablet, 1 TAB ORAL HS 11/10/18 Clopidogrel Bisulfate (Clopidogrel) 75 Mg Tablet, 1 TAB ORAL DAILY 11/10/18 Aspirin (Aspirin) 81 Mg Chew, 1 TAB ORAL DAILY 11/10/18 Metformin Hcl* (Metformin Hcl*) 1,000 Mg Tablet, 500 MG ORAL BID 11/10/18 Carvedilol* (Carvedilol*) 3.125 Mg Tablet, 1 TAB ORAL DAILY 11/10/18 Follow-up Plan Please take your medications as prescribed, see your doctor in the clinic next week. Primary Care Provider Care Physician No Primary Time spent on discharge: > 30 minutes Pending Labs Laboratory Tests Test 11/12/18 11:44 11/12/18 17:19 11/12/18 20:18 11/12/18 23:09 Bedside 125 137 75 102 Glucose mg/dL (70-220) mg/dL (70-220) mg/dL (70-220) mg/dL (70-220) Test 11/13/18 05:24 11/13/18 07:24 11/13/18 08:29 White Blood 6.3 Count 10^3/ul (4.8-10 .8) Red Blood 4.01 Count 10^6/ul (4.20-5 .40) Hemoglobin 11.3 g/dl (12.0-16.0 ) Hematocrit 33.7 % (37.0-47.0) Mean 84.0 Corpuscular fl (82.0-101.0) Volume Mean 28.2 Corpuscular pg (29.0-33.0) Hemoglobin Mean 33.5 Corpuscular g/dl (32.0-37.0 Hemoglobin Conc ) ent Red Cell 16.1 Distribution % (11.5-14.5) Width Platelet Count 231 10^3/UL (140-41 5) Mean Platelet 10.5 Volume fl (7.4-10.4) Immature 1.100 Granulocytes % % (0.001-0.429) Neutrophils % 70.8 % (39.0-77.0) Lymphocytes % 19.1 % (15.0-51.0) Monocytes % 6.2 % (0.0-11.0) Eosinophils % 2.5 % (0.0-7.0) Basophils % 0.3 % (0.0-2.0) Nucleated Red 0.0 Blood Cells % /100WBC (0.0-0. 0) Immature 0.070 Granulocytes # 10^3/ul (0.0-0. 031) Neutrophils # 4.4 10^3/ul (1.6-7. 5) Lymphocytes # 1.2 10^3/ul (0.8-2. 9) Monocytes # 0.4 10^3/ul (0.3-0. 9) Eosinophils # 0.2 10^3/ul (0.0-0. 5) Basophils # 0.0 10^3/ul (0.0-0. 1) Nucleated Red 0.0 Blood Cells # 10^3/ul (0.0-0. 0) Sodium Level 135 mmol/L (135-144 ) Potassium 3.2 Level mmol/L (3.5-5.1 ) Chloride Level 103 mmol/L (97-110) Carbon Dioxide 27 Level mmol/L (21-31) Anion Gap 5 (5-13) Blood Urea 8 mg/dl (7-20) Nitrogen Creatinine 0.57 mg/dl (0.44-1.0 0) Est Glomerular mL/min (>60) Filtrat Rate mL/min Glucose Level 67 mg/dl (70-220) Calcium Level 8.4 mg/dl (8.4-10.2 ) Bedside 64 151 Glucose mg/dL (70-220) mg/dL (70-220) JOSÉ MIGUEL FARAH. Nov 13, 2018 11:37
[2018-11-13 11:39] VITALS: BP 117/77; PULSE 82; RESP 21
[2018-11-13 12:15] VITALS: PULSE 80
== END 2018-11-13 15:00 | disposition home health service (06) | DRG 871 ==
LOC: E/R 08:11 → ICU 10:49 → EDBEDREQSVC 12:25 → 6WM 11-12 10:23
PROVIDERS: ADMIT Hospitalist; ATTEND Hospitalist
DX: A41.9 Sepsis, unspecified organism (principal); R65.21 Severe sepsis with septic shock; G93.41 Metabolic encephalopathy; I63.50 Cerebral infarction due to unspecified occlusion or stenosis of unspecified cerebral artery; B37.49 Other urogenital candidiasis; E11.9 Type 2 diabetes mellitus without complications; E03.9 Hypothyroidism, unspecified; I10 Essential (primary) hypertension; B95.0 Streptococcus, group A, as the cause of diseases classified elsewhere; Z79.4 Long term (current) use of insulin; Z79.82 Long term (current) use of aspirin; Z90.49 Acquired absence of other specified parts of digestive tract; Z86.73 Personal history of transient ischemic attack (TIA), and cerebral infarction without residual deficits
CPT/HCPCS: 36415; 70450; 70496; 70498; 70551; 71045; 76937; 80048; 80061; 80307; 81001; 82550; 82553; 82947; 82962; 83036; 83605; 83735; 84100; 84439; 84443; 84484; 85025; 85610; 85730; 86850; 86900; 86901; 87040; 87081; 87086; 87400; 92610; 93005; 93306; 93880; 96365; 96366; 96375; 97116; 97161; 97167; 97530; 97535; J0696; J1644; J1815; J2060; J2405; J3370; J3480; J7030; J7050; Q9967